=== PATIENT | male | born 1955 | race Caucasian/White ===

== ENCOUNTER 2020-03-08 07:40 | Outpatient (CLI) | payer BC, SELFPAY ==
--- NOTE | ~2020-03-08 | MR_ITS ---
EXAMINATION: MR knee RT wo con DATE: 03/08/2020 08:40 INDICATION: Right knee pain. TECHNIQUE: Magnetic resonance imaging (MRI) of the right knee was performed without intravenous contr ast. Sequences included axial PD-weighted FS FSE, coronal PD-weighted FSE and PD-weighted FS FSE, sag ittal PD-weighted FSE, and sagittal T2-weighted FS FSE. COMPARISON: Right knee radiographs 01/24/2020 FINDINGS: Medial compartment: There is a radial tear of posterior root of medial meniscus. There is cartilage surface irregularity of tibial condyle. There is a subchondral insufficiency fracture of femoral condyle involving the med ial and central articular surface characterized by cortical irregularity, subchondral sclerosis, and surrounding bone marrow edema. There is deep partial thickness cartilage loss of femoral condyle invo lving the medial and lateral articular surface. Lateral compartment: Lateral meniscus is normal. There is cartilage surface irregularity of tibial condyle posteriorly. Fe moral cartilage is normal. Patellofemoral compartment: Patellar cartilage is normal. Trochlear cartilage is normal, but motion artifact decreases sensitivit y. Ligaments and tendons: The anterior and posterior cruciate ligaments are normal. There is a sprain of medial collateral liga ment characterized by thickening and increased signal intensity and surrounding edema. There are oliveira ges of prior sprain of fibular collateral ligament characterized by thickening and increased signal i ntensity proximally. There is mild patellar tendinopathy. Fluid: There is a moderate-sized knee joint effusion. There is a moderate-sized ruptured Zapien's cyst. There is moderate prepatellar and superficial infrapatellar bursitis. IMPRESSION: 1. Insufficiency fracture of medial femoral condyle. 2. Moderate chondrosis of medial compartment and mild chondrosis of lateral compartment. 3. Tear of medial meniscus. 4. Grade 2 sprain of medial collateral ligament. 5. Moderate-sized knee joint effusion. 6. Moderate-sized ruptured Zapien's cyst. Reviewed, dictated and finalized at location [facility]. IMPRESSION: 1. Insufficiency fracture of medial femoral condyle. 2. Moderate chondrosis of medial compartment and mild chondrosis of lateral com partment. 3. Tear of medial meniscus. 4. Grade 2 sprain of medial collateral ligament. 5. Moderate-sized knee joint effusion. 6. Moderate-sized ruptured Zapien's cyst.
== END 2020-03-08 07:41 | disposition home or self-care (01) ==
PROVIDERS: Visit Provider Orthopaedic Surgery
DX: M25.461 Effusion, right knee (principal); M71.21 Synovial cyst of popliteal space [Baker], right knee; S83.241A Other tear of medial meniscus, current injury, right knee, initial encounter; S83.411A Sprain of medial collateral ligament of right knee, initial encounter; X58.XXXA Exposure to other specified factors, initial encounter
CPT/HCPCS: 73721

== ENCOUNTER → 2022-04-28 15:31 | Outpatient (CLI) | payer BC, SELFPAY ==
--- NOTE | ~2022-04-28 | CT_ITS ---
EXAMINATION: CT diagnostic chest wo con DATE: 04/28/2022 16:07 INDICATION: Lung nodules. History of bladder cancer 30+ years ago, prostate cancer 6 years ago TECHNIQUE: Computed tomography (CT) of the chest was performed without intravenous contrast. Automate d exposure control and iterative reconstruction technique were employed. Exam dose: 89.78 mGy-cm tot al exam DLP. COMPARISON: None FINDINGS: There is a wedge shaped pleural-based up to 2.7 cm x 3.4 cm opacity along the anterolateral base of t he left lower lobe. Differential diagnosis includes focal atelectasis, consolidation, infarct versus pulmonary malignancy. There are numerous bilateral pulmonary nodules scattered throughout both lungs including all lobes, m easuring up to 7 mm bilaterally. Diffusion diagnosis includes metastatic disease, granulomatous disea se. PET/CT imaging is recommended for further evaluation. Normal heart size. No pericardial or pleural effusion. No significantly enlarged hilar or mediastinal lymph nodes are noted. Normal morphology of the adrenal glands. Diffuse idiopathic skeletal hyperostosis of the thoracic spine. IMPRESSION: Approximately 2.7 x 3.4 cm opacity in the anterolateral base of the left lower lobe and numerous 7 mm and smaller bilateral pulmonary nodules. Primary and metastatic pulmonary malignancy mu st be considered. PET/CT imaging is recommended Reviewed, dictated and finalized at [facility]. Reviewed, dictated and finalized at location [facility]. IMPRESSION: Approximately 2.7 x 3.4 cm opacity in the anterolateral base of th e left lower lobe and numerous 7 mm and smaller bilateral pulmonary nodules. Pr imary and metastatic pulmonary malignancy must be considered. PET/CT imaging is recommended
== END ==
DX: R91.8 Other nonspecific abnormal finding of lung field (principal)
CPT/HCPCS: 71250

== ENCOUNTER 2024-02-14 09:19 | Outpatient (CLI) | payer MEDICARE, SELFPAY ==
--- NOTE | ~2024-02-14 | US_ITS ---
EXAMINATION: US carotid duplex BI DATE: 02/14/2024 09:58 INDICATION: Diabetes. History of headaches and visual changes. TECHNIQUE: Grayscale, color Doppler, and pulsed Doppler images of the cervical carotid arteries were obtained. The degree of vessel stenosis is placed in one of the following categories: normal, <50%, 5 0-69%, >=70% but less than near-occlusion, near-occlusion, or total occlusion. Note that percent sten osis relative to normal distal artery lumen diameter is indirectly measured from velocity measurement s as described by Hosea, et al. Radiology 2003; [id number]:340-346. Notes: Normal: Peak systolic velocity <125 centimeters/sec and no plaque <50%. Peak systolic velocity <125 ( EDV <40; ICA/CCA PSV ratio <2.0; used these factors only a tandem lesions or low cardiac output or co ntralateral disease) 50-69 %: PSV 125-230 (EDV 40-100; ratio 2-4) >= 70% but less than near occlusion: PSV greater than 230 (EDV > 100; ratio> 4.0) Near Occlusion: PSV that is variable; markedly narrowed lumen Occlusion: Absent flow on color/spectral Doppler and no lumen on velasquez scale. COMPARISON: Ultrasound dated 01/20/2020. FINDINGS: RIGHT: The right common carotid artery (CCA) peak systolic velocity (PSV) is 77 cm/s. The right internal car otid artery (ICA) PSV is 75 cm/s. The right ICA end-diastolic velocity (EDV) is 23 cm/s. The right IC A/CCA PSV ratio is 1.0. The external carotid artery (ECA) PSV is 122 cm/s. There is antegrade flow in the right vertebral artery. LEFT: The left CCA PSV is 89 cm/s. The left ICA PSV is 114 cm/s. The left ICA EDV is 22 cm/s. The left ICA/ CCA PSV ratio is 1.3. The ECA PSV is 116 cm/s. There is antegrade flow in the left vertebral artery. IMPRESSION: 1. Less than 50% stenosis in the right internal carotid artery by sonographic criteria. 2. Less than 50% stenosis in the left internal carotid artery by sonographic criteria. Reviewed, dictated and finalized at location [facility]. IMPRESSION: 1. Less than 50% stenosis in the right internal carotid artery by sonographic c mahnaz. 2. Less than 50% stenosis in the left internal carotid artery by sonographic iván huffman.
== END 2024-02-14 09:20 | disposition home or self-care (01) ==
DX: E10.9 Type 1 diabetes mellitus without complications (principal); I65.23 Occlusion and stenosis of bilateral carotid arteries
CPT/HCPCS: 93880